=== PATIENT | male | born 1995 | race African-American/Black ===

== ENCOUNTER 2019-07-16 18:50 | Emergency (ER) | payer OTHER ==
[2019-07-16 19:18] VITALS: BP 136/73
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
[2019-07-16] MEDS ORDERED: Amoxicillin/Clavulanate TAB* 875 MG PO ONE (20:28)
[2019-07-16] MEDS ORDERED: Ibuprofen TAB* 600 MG PO ONE (20:28)
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
== END 2019-07-16 21:37 | disposition home or self-care (01) ==
LOC: UCCORT 18:50
DX: S61.552A Open bite of left wrist, initial encounter (principal); S93.402A Sprain of unspecified ligament of left ankle, initial encounter; W50.3XXA Accidental bite by another person, initial encounter; Y92.9 Unspecified place or not applicable; Y99.0 Civilian activity done for income or pay
CPT/HCPCS: 99203; A9270-GY; G0463